=== PATIENT | male | born 1980 | race Caucasian/White ===

== ENCOUNTER 2017-01-29 18:41 | Emergency (ER) | payer MEDICAID ==
[~2017-01-29] VITALS: Ht 180.3 cm; Wt 68.8 kg
[~2017-01-29 18:41] MED LIST: AMIT10TA PO; AMLO10TA2 PO; CLON0.1T PO; LISI5TAB7 PO; METR500T PO; SERT25TA3 PO
[2017-01-29] MEDS ORDERED: LIDOCAINE 1%, 20ML SQ ONE (19:00)
[2017-01-29] MEDS ORDERED: BACITRACIN ZINC OINT 500U/GM, 0.9 GM ONE (20:56)
[2017-01-29 21:05] VITALS: BP 126/78
== END 2017-01-29 21:08 | disposition home or self-care (01) ==
LOC: ED 21:02
DX: S61.012A Laceration without foreign body of left thumb without damage to nail, initial encounter (principal); W45.8XXA Other foreign body or object entering through skin, initial encounter; Y93.89 Activity, other specified; Y92.89 Other specified places as the place of occurrence of the external cause; Y99.8 Other external cause status
CPT/HCPCS: 12001